=== PATIENT | male | born 1955 | race Caucasian/White ===

== ENCOUNTER 2017-12-19 10:24 | Emergency (ER) | payer MEDICARE ==
[2017-12-19] MEDS ORDERED: Diltiazem IV* 5 MG/ML 5 ML VIAL (for loading dose/IV Push) (25 MG) IV PUSH ONE (10:48)
[2017-12-19] MEDS ORDERED: Diltiazem CD CAP* 180 MG PO ONE (11:07)
[2017-12-19 11:10] LABS: ABS Basophils 0.1 10^3/ul (0-0.2); ABS Eosinophils 0 10^3/ul (0-0.6); ABS Lymphocytes 2.2 10^3/ul (1.0-4.8); ABS Monocytes 0.8 10^3/ul (0-0.8); ABS Neutrophils 6.7 10^3/ul (1.5-7.7); ABS Nucleated RBC 0 10^3/ul; Eosinophil % 0.5 % (0-6); Hematocrit 52 % (42-52); Hemoglobin 17.7 g/dl (14.0-18.0); Lymphocyte % 22.6 % (25-47); Mean Corpuscular HGB Conc 34 g/dl (31-36); Mean Corpuscular Hemoglobin 31 pg (27-31); Mean Corpuscular Volume 91 fL (80-94); Mean Platelet Volume 8.8 um3 (7.4-10.4); Nucleated Red Blood Cells % 0.1; Platelet Count 290 10^3/ul (150-450); Red Blood Count 5.63 10^6/ul (4.00-5.40); Red Cell Distribution Width 14 % (10.5-15); White Blood Count 9.9 10^3/ul (3.5-10.8)
[2017-12-19 11:18] LABS: INR 1.51 (0.77-1.02)
--- NOTE | 2017-12-19 11:27 | RAD ---
Indication: Shortness of breath. Single frontal view of the chest performed at 1112 hours was reviewed. No prior study is available for comparison. No mediastinal shift is noted. Heart is of normal size and configuration. Lung oshea appear clear. IMPRESSION: NO ACTIVE CARDIOPULMONARY DISEASE IS NOTED.
[2017-12-19 11:28] LABS: EGFR Non-African American 76.9 (>60)
[2017-12-19 14:39] VITALS: BP 127/89
--- NOTE | 2017-12-19 14:56 | ED ---
Gui Shepard Tenzin, scribed for Amanda Gonzalezuel on 12/19/17 at 1053 . Shortness of Breath - HPI Summary HPI Summary: Pt is a 62 years old male presenting to the ED complaining of chest pressure, SOB and dizziness since yesterday. Pt denies fever, vomiting, diarrhea or headache. No aggravating and alleviating factors were noted. Pt does not smoke or drink EtOH. - History of Current Complaint Chief Complaint: EDChestPainROMI Time Seen by Provider: 12/19/17 10:40 Hx Obtained From: Patient Onset/Duration: Still Present Associated Signs & Symptoms: Negative - POSTIVE: SOB NEGATIVE: Emesis, diarrhea. , Chest Pain Unrelated to Cough - pressure and tightness., Dizzy - Allergy/Home Medications Allergies/Adverse Reactions: Allergies Allergy/AdvReac Type Severity Reaction Status Date / Time Adhesive Tape Allergy Rash Verified 04/18/15 08:14 iv contrast Allergy Hives Uncoded 10/21/15 12:28 iv iodine Allergy Hives Uncoded 10/21/15 12:28 Home Medications: Home Medications Ascorbic Acid TAB* [Vitamin C TAB*] 500 mg PO DAILY 12/19/17 [History Confirmed 12/19/17] Multivitamins/Minerals TAB* [Theragran/minerals TAB*] 1 tab PO DAILY 12/19/17 [ History Confirmed 12/19/17] Rosuvastatin (NF) [Crestor (NF)] 40 mg PO DAILY 12/19/17 [History Confirmed ] Sotalol TAB* [Betapace 80 MG TAB*] 80 mg PO BID 12/19/17 [History Confirmed ] amLODIPine TAB* [Norvasc 5 mg TAB*] 5 mg PO DAILY 12/19/17 [History Confirmed ] PMH/Surg Hx/FS Hx/Imm Hx Endocrine/Hematology History: Denies: Hx Diabetes Cardiovascular History: Reports: Hx Coronary Artery Disease - HYPERLIPIDEMIA, Hx Hypertension, Other Cardiovascular Problems/Disorders - CLEARED BY DR. RODRIGUEZ-ATRIAL FIB/AORTOILIAC DISEASE Denies: Hx Pacemaker/ICD Respiratory History: Reports: Other Respiratory Problems/Disorders - CHRONIC TOBACCO USE-IN PROCESS OF QUITTING Denies: Hx Asthma History: Denies: Hx Renal Disease Musculoskeletal History: Reports: Hx Tendonitis - RIGHT ELBOW Sensory History: Reports: Hx Contacts or Glasses - GLASSES Denies: Hx Hearing Aid Opthamlomology History: Reports: Hx Contacts or Glasses - GLASSES Neurological History: Reports: Hx Migraine - TAKES NADOLOL ROUTINELY FOR, Other Neuro Impairments/Disorders - PERIPHERAL NEUROPATHY Psychiatric History: Reports: Hx Anxiety - CURRENTLY R/T HEALTH CONCERNS, Hx Depression - ON MED Denies: Hx Panic Disorder - Surgical History Surgery Procedure, Year, and Place: Stents placed L leg Hx Anesthesia Reactions: No Infectious Disease History: No Infectious Disease History: Denies: Hx Clostridium Difficile, Hx Hepatitis, Hx Human Immunodeficiency Virus (HIV), Hx of Known/Suspected MRSA, Hx Shingles, Hx Tuberculosis, Hx Known/ Suspected VRE, Hx Known/Suspected VRSA, History Other Infectious Disease, Traveled Outside the [place] in Last 30 Days - Family History Known Family History: Positive: Other - Pt denies any relevant family history. - Social History Alcohol Use: None Alcohol Amount: Pt reports quitting alcohol in November prior to surgery Substance Use Type: Reports: None Substance Use Comment - Amount & Last Used: USED COCAINE IN THE PAST- Smoking Status (MU): Former Smoker Type: Cigarettes Amount Used/How Often: 1 PPD Length of Time of Smoking/Using Tobacco: 35 YRS Have You Smoked in the Last Year: Yes Review of Systems Negative: Fever Positive: Chest Pain - Chest tightness and pressure. Positive: Shortness Of Breath Negative: Vomiting, Diarrhea Neurological: Other - POSTIVE: DIZZINESS. Negative: Headache All Other Systems Reviewed And Are Negative: Yes Physical Exam - Summary Physical Exam Summary: Appearance: Well appearing, no pain distress Skin: warm, dry, reflects adequate perfusion Head/face: normal Eyes: EOMI, JENNIFER ENT: normal Neck: supple, non-tender Respiratory: CTA, breath sounds present Cardiovascular: Tachycardia, Irregularly irregular rhythm. Abdomen: non-tender, soft Bowel: present Musculoskeletal: normal, strength/ROM intact Neuro: normal, sensory motor intact, A&Ox3 Triage Information Reviewed: Yes Vital Signs On Initial Exam: Initial Vitals Temp Pulse Resp BP Pulse Ox 99 F 123 19 147/102 97 12/19/17 10:28 12/19/17 10:28 12/19/17 10:28 12/19/17 10:28 12/19/17 10:28 Vital Signs Reviewed: Yes Diagnostics - Vital Signs Vital Signs Temp Pulse Resp BP Pulse Ox 12/19/17 10:28 99 F 123 19 147/102 97 - Laboratory Lab Results: Lab Results 12/19/17 12/19/17 12/19/17 Range/Units 10:58 10:58 10:58 WBC 9.9 (3.5-10.8) 10^3/ul RBC 5.63 H (4.00-5.40) 10^6/ul Hgb 17.7 (14.0-18.0) g/dl Hct 52 (42-52) % MCV 91 (80-94) fL MCH 31 (27-31) pg MCHC 34 (31-36) g/dl RDW 14 (10.5-15) % Plt Count 290 (150-450) 10^3/ul MPV 8.8 (7.4-10.4) um3 Neut % (Auto) 67.9 (38-83) % Lymph % (Auto) 22.6 L (25-47) % Collin % (Auto) 8.1 H (0-7) % Eos % (Auto) 0.5 (0-6) % Baso % (Auto) 0.9 (0-2) % Absolute Neuts (auto) 6.7 (1.5-7.7) 10^3/ul Absolute Lymphs (auto) 2.2 (1.0-4.8) 10^3/ul Absolute Monos (auto) 0.8 (0-0.8) 10^3/ul Absolute Eos (auto) 0 (0-0.6) 10^3/ul Absolute Basos (auto) 0.1 (0-0.2) 10^3/ul Absolute Nucleated RBC 0 10^3/ul Nucleated RBC % 0.1 INR (Anticoag Therapy) 1.51 H (0.77-1.02) APTT 40.1 H (26.0-36.3) seconds Sodium 136 (135-145) mmol/L Potassium TNP Chloride 104 (101-111) mmol/L Carbon Dioxide 23 (22-32) mmol/L Anion Gap 9 (2-11) mmol/L BUN 15 (6-24) mg/dL Creatinine 0.99 (0.67-1.17) mg/dL Est GFR ( Amer) 93.0 (>60) Est GFR (Non-Af Amer) 76.9 (>60) BUN/Creatinine Ratio 15.2 (8-20) Glucose 125 H (70-100) mg/dL Calcium 10.7 H (8.6-10.3) mg/dL Magnesium 2.0 (1.9-2.7) mg/dL Total Bilirubin 1.40 H (0.2-1.0) mg/dL AST 55 H (13-39) U/L ALT 85 H (7-52) U/L Alkaline Phosphatase 69 (34-104) U/L Troponin I 0.00 (<0.04) ng/mL B-Natriuretic Peptide ( - 100) pg/mL Total Protein 7.8 (6.4-8.9) g/dL Albumin 4.8 (3.2-5.2) g/dL Globulin 3.0 (2-4) g/dL Albumin/Globulin Ratio 1.6 (1-3) 12/19/17 12/19/17 12/19/17 Range/Units 10:58 12:18 13:34 WBC (3.5-10.8) 10^3/ul RBC (4.00-5.40) 10^6/ul Hgb (14.0-18.0) g/dl Hct (42-52) % MCV (80-94) fL MCH (27-31) pg MCHC (31-36) g/dl RDW (10.5-15) % Plt Count (150-450) 10^3/ul MPV (7.4-10.4) um3 Neut % (Auto) (38-83) % Lymph % (Auto) (25-47) % Collin % (Auto) (0-7) % Eos % (Auto) (0-6) % Baso % (Auto) (0-2) % Absolute Neuts (auto) (1.5-7.7) 10^3/ul Absolute Lymphs (auto) (1.0-4.8) 10^3/ul Absolute Monos (auto) (0-0.8) 10^3/ul Absolute Eos (auto) (0-0.6) 10^3/ul Absolute Basos (auto) (0-0.2) 10^3/ul Absolute Nucleated RBC 10^3/ul Nucleated RBC % INR (Anticoag Therapy) (0.77-1.02) APTT (26.0-36.3) seconds Sodium (135-145) mmol/L Potassium 4.8 Chloride (101-111) mmol/L Carbon Dioxide (22-32) mmol/L Anion Gap (2-11) mmol/L BUN (6-24) mg/dL Creatinine (0.67-1.17) mg/dL Est GFR ( Amer) (>60) Est GFR (Non-Af Amer) (>60) BUN/Creatinine Ratio (8-20) Glucose (70-100) mg/dL Calcium (8.6-10.3) mg/dL Magnesium (1.9-2.7) mg/dL Total Bilirubin (0.2-1.0) mg/dL AST 43 H (13-39) U/L ALT (7-52) U/L Alkaline Phosphatase (34-104) U/L Troponin I 0.00 (<0.04) ng/mL B-Natriuretic Peptide 201 H ( - 100) pg/mL Total Protein (6.4-8.9) g/dL Albumin (3.2-5.2) g/dL Globulin (2-4) g/dL Albumin/Globulin Ratio (1-3) Result Diagrams: 12/19/17 10:58 12/19/17 12:18 Lab Statement: Any lab studies that have been ordered have been reviewed, and results considered in the medical decision making process. - Radiology CHEST X RAY Radiology Interpretation Completed By: Radiologist - Impression: No active cardiopulmonary disease is noted. - EKG 10:36 Cardiac Rate: Tachycardia - at 129 BPM EKG Rhythm: Atrial Fibrillation - with Rapid Ventriculation response. Re-Evaluation - Re-Evaluation First Eval Re-Evaluation Time: 11:30 Change: Improved - Pt reports that he feels better. Second round of troponin will be done after 3 hrs. Course/Dx - Course Course Of Treatment: Pt is a 62 years old male presenting to the ED complaining of chest pressure, SOB and dizziness since yesterday. EKG showed patient has A. fib with rapid ventricular rate IV Cardizem given and also by mouth Cardizem given at present and the rate is controlled. Discussed with Dr. Moreira who recommended the patient will Cardizem and follow up with him at his office in 1 week. Patient understands and agrees with the plan. Also advised to get Check his calcium with His Primary Doctor in the Next Few Weeks - Diagnoses Provider Diagnoses: Atrial fibrillation with rapid ventricular response - Physician Notifications Discussed Care of Patient With: Ayden Moreira Time Discussed With Above Provider: 10:58 - He agrees with the plan to give the pt Cardizem and keep an eye on him. - Critical Care Time Critical Care Time: 30-74 min Discharge - Sign-Out/Discharge Documenting (check all that apply): Discharge/Admit/Transfer - discharge - Discharge Plan Condition: Stable Disposition: HOME Prescriptions: dilTIAZem HCl [Cardizem LA] 180 mg PO ONCE #30 tab.er.24h Patient Education Materials: A-fib (Atrial Fibrillation) (ED) Referrals: Guicho Servin MD [Primary Care Provider] - 3 Days Additional Instructions: Follow up with your primary care physician in three days. Return to the emergency department for any new or worsening symptoms. - Billing Disposition and Condition Condition: STABLE Disposition: Home The documentation as recorded by the Gui fraser Tenzin accurately reflects the service I personally performed and the decisions made by , Ramiro Gonzalez.
== END 2017-12-19 14:40 | disposition home or self-care (01) ==
LOC: ED 10:24
DX: I48.91 Unspecified atrial fibrillation (principal); R00.0 Tachycardia, unspecified; I10 Essential (primary) hypertension; I25.10 Atherosclerotic heart disease of native coronary artery without angina pectoris; E78.5 Hyperlipidemia, unspecified; F41.8 Other specified anxiety disorders; Z79.899 Other long term (current) drug therapy; Z87.891 Personal history of nicotine dependence; Z91.041 Radiographic dye allergy status
CPT/HCPCS: 36415; 71045; 80053; 83735; 83880; 84484; 85025; 85610; 85730; 93005; 96374; 99283; A9270-GY